=== PATIENT | female | born 1965 | race Caucasian/White ===

== ENCOUNTER 2018-08-14 09:53 | Observation (INO) | payer SELFPAY ==
[2018-08-14] MEDS ORDERED: PREDNISONE 20 MG TABLET PO ONE (10:47)
[2018-08-14] MEDS ORDERED: IPRATROPIUM/ALBUTEROL 0.5-2.5 MG/3 ML AMPUL NEB ONE ×2 (10:47→12:03)
--- NOTE | 2018-08-14 10:50 | ER Document Report ---
ED Medical Screen (RME) - General Chief Complaint: Breathing Difficulty Stated Complaint: DIFFICULTY BREATHING Time Seen by Provider: 08/14/18 10:48 Mode of Arrival: Ambulatory Information source: Patient TRAVEL OUTSIDE OF THE [place] IN LAST 30 DAYS: No - HPI Onset: Other - 1 week ago Onset/Duration: Gradual, Constant Quality of pain: No pain Severity: None Pain Level: Denies Associated Symptoms: Cough (productive), Shortness of breath Exacerbated by: Denies Relieved by: Denies Similar symptoms previously: No Recently seen / treated by doctor: No - Related Data Smoking: Non-smoker Frequency of alcohol use: None Drug Abuse: None Allergies/Adverse Reactions: naproxen Adverse Reaction (Verified 08/14/18 09:54) Sulfa (Sulfonamide Antibiotics) Adverse Reaction (Verified 08/14/18 09:54) Past Medical History - Social History Chew tobacco use (# tins/day): No Frequency of alcohol use: None Drug Abuse: None Renal/ Medical History: Denies: Hx Peritoneal Dialysis GI Medical History: Reports: Hx Irritable Bowel Past Surgical History: Reports: Hx Oral Surgery, Hx Tubal Ligation - Immunizations Hx Diphtheria, Pertussis, Tetanus Vaccination: Yes Review of Systems - Review of Systems Constitutional: No symptoms reported EENT: No symptoms reported Cardiovascular: No symptoms reported Respiratory: Cough, Short of breath Gastrointestinal: No symptoms reported Genitourinary: No symptoms reported Female Genitourinary: No symptoms reported Musculoskeletal: No symptoms reported Skin: No symptoms reported Hematologic/Lymphatic: No symptoms reported Neurological/Psychological: No symptoms reported -: Yes All other systems reviewed and negative Physical Exam - Vital signs Vitals: Temp Pulse Resp BP Pulse Ox 98.4 F 65 16 149/71 H 98 08/14/18 10:00 08/14/18 10:00 08/14/18 10:00 08/14/18 10:00 08/14/18 10:00 Interpretation: Normal - General General appearance: Appears well, Alert - HEENT Head: Normocephalic, Atraumatic Eyes: Normal Pupils: PERRL - Respiratory Respiratory status: No respiratory distress Chest status: Nontender Breath sounds: Wheezing - Expiratory wheeze. Chest palpation: Normal - Cardiovascular Rhythm: Regular Heart sounds: Normal auscultation Murmur: No - Abdominal Inspection: Normal Distension: No distension Bowel sounds: Normal Tenderness: Nontender Organomegaly: No organomegaly - Back Back: Normal, Nontender - Extremities General upper extremity: Normal inspection, Nontender, Normal color, Normal ROM, Normal temperature General lower extremity: Normal inspection, Nontender, Normal color, Normal ROM, Normal temperature, Normal weight bearing. No: Ezekiel's sign - Neurological Neuro grossly intact: Yes Cognition: Normal Orientation: AAOx4 Kite Coma Scale Eye Opening: Spontaneous Godfrey Coma Scale Verbal: Oriented Kite Coma Scale Motor: Obeys Commands Kite Coma Scale Total: 15 Speech: Normal Motor strength normal: LUE, RUE, LLE, RLE Sensory: Normal - Psychological Associated symptoms: Normal affect, Normal mood - Skin Skin Temperature: Warm Skin Moisture: Dry Skin Color: Normal Course - Vital Signs Vital signs: Temp Pulse Resp BP Pulse Ox 98.4 F 65 16 149/71 H 98 08/14/18 10:00 08/14/18 10:00 08/14/18 10:00 08/14/18 10:00 08/14/18 10:00 - Laboratory Result Diagrams: 08/14/18 11:15 08/14/18 11:15 Laboratory results interpreted by me: 08/14/18 08/14/18 08/14/18 11:15 11:15 12:26 WBC 16.0 H Hgb 15.9 H MCV 100 H MCH 34.4 H Absolute Neutrophils 9.8 H Absolute Lymphocytes 4.9 H ABG pO2 59.5 L ABG O2 Saturation 92.1 L Potassium 3.5 L Calcium 10.3 H - Diagnostic Test Radiology reviewed: Reports reviewed - Consults Dr Linus Guerrier Reason for consultation: 08/14/18 13:10 Admission for observation. Consulted provider: will come to ER Doctor's Discharge - Discharge Clinical Impression: Hypoxia URI (upper respiratory infection) Qualifiers: URI type: unspecified URI Qualified Code(s): J06.9 - Acute upper respiratory infection, unspecified Reactive airway disease Qualifiers: Asthma severity: unspecified severity Asthma persistence: unspecified Asthma complication type: uncomplicated Qualified Code(s): J45.909 - Unspecified asthma, uncomplicated Condition: Stable Disposition: ADMITTED OBSERVATION
[2018-08-14 11:36] LABS: ABSOLUTE LYMPHOCYTES (AUTO) 4.9 10^3/uL (0.5-4.7); ABSOLUTE MONOCYTES (AUTO) 1.3 10^3/uL (0.1-1.4); ABSOLUTE NEUT (AUTO) 9.8 10^3/uL (1.7-8.2); BASOPHILS % (AUTO) 0.2 % (0-2); EOSINOPHILS % (AUTO) 0.3 % (0-6); HEMATOCRIT 46.1 % (36.0-47.0); HEMOGLOBIN 15.9 g/dL (12.0-15.5); LYMPHOCYTES % (AUTO) 30.3 % (13-45); MEAN CORPUSCULAR HEMOGLOBIN 34.4 pg (27.0-33.4); MEAN CORPUSCULAR HGB CONC 34.4 g/dL (32.0-36.0); MEAN CORPUSCULAR VOLUME 100 fl (80-97); MONOCYTES % (AUTO) 8.1 % (3-13); PLATELET COUNT 364 10^3/uL (150-450); RED BLOOD COUNT 4.62 10^6/uL (3.72-5.28); SEGMENTED NEUTROPHILS % (AUTO) 61.1 % (42-78); TOTAL CELLS COUNTED % (AUTO) 100 %
[2018-08-14 11:57] LABS: ALANINE AMINOTRANSFERASE 24 U/L (9-52); ALKALINE PHOSPHATASE 103 U/L (38-126); ANION GAP 14 (5-19); ASPARTATE AMINO TRANSFERASE 16 U/L (14-36); BILIRUBIN,DIRECT 0.3 mg/dL (0.0-0.4); BILIRUBIN,TOTAL 0.8 mg/dL (0.2-1.3); BLOOD UREA NITROGEN 18 mg/dL (7-20); CALCIUM 10.3 mg/dL (8.4-10.2); CARBON DIOXIDE 26 mmol/L (22-30); CHLORIDE 99 mmol/L (98-107); GLUCOSE 94 mg/dL (75-110); POTASSIUM 3.5 mmol/L (3.6-5.0); SODIUM 139.1 mmol/L (137-145); TOTAL PROTEIN 7.9 g/dL (6.3-8.2)
[2018-08-14] MEDS ORDERED: LEVOFLOXACIN 750 MG TABLET PO ONE (12:02)
--- NOTE | 2018-08-14 12:10 | RADIOLOGY REPORT (SQ) ---
EXAM DESCRIPTION: CHEST 2 VIEWS COMPLETED DATE/TIME: 08/14/2018 11:23 am REASON FOR STUDY: cough COMPARISON: None. EXAM PARAMETERS: NUMBER OF VIEWS: two views TECHNIQUE: Digital Frontal and Lateral radiographic views of the chest acquired. RADIATION DOSE: NA LIMITATIONS: none FINDINGS: LUNGS AND PLEURA: No opacities, masses or pneumothorax. No pleural effusion. MEDIASTINUM AND HILAR STRUCTURES: No masses or contour abnormalities. HEART AND VASCULAR STRUCTURES: Heart normal size. No evidence for failure. BONES: No acute findings. HARDWARE: None in the chest. OTHER: No other significant finding. IMPRESSION: NO ACUTE RADIOGRAPHIC FINDING IN THE CHEST. TECHNICAL DOCUMENTATION: JOB ID: [id number] [employer]- All Rights Reserved Reading location - IP/workstation name: [email or web address]
[2018-08-14 12:44] LABS: ARTERIAL BLOOD BASE EXCESS 0.4 mmol/L; ARTERIAL BLOOD H2CO3 1.06 mmol/L (1.05-1.35); ARTERIAL BLOOD HCO3 23.8 mmol/L (20-24); ARTERIAL BLOOD O2 SATURATION 92.1 % (94-98); ARTERIAL BLOOD PCO2 35.1 mmHg (35-45); ARTERIAL BLOOD PH 7.45 (7.35-7.45); ARTERIAL BLOOD PO2 59.5 mmHg (80-100); ARTERIAL BLOOD TOTAL CO2 24.9 mmol/L (21-25)
[2018-08-14 12:45] LABS: ARTERIAL BLOOD FIO2 ROOM AIR
--- NOTE | 2018-08-14 14:50 | PDOC H&P ---
History of Present Illness Admission Date/PCP: 08/14/18 14:08 History of Present Illness: MELVINA BECK is a 53 year old female who smokes about a pack of cigarettes a day who is been trying to quit for the past year and states she has not had a cigarette in the past week and a half, around the time that she started to have some trouble breathing. She has not had any fever or productive cough. She said that she started out with some tightness when she breathes, and this progressed to some dyspnea with exertion, but she feels fine at rest. She is not had any swelling in her extremities. Her chest is not felt congested. She does not have any substantial past medical history except for some seasonal allergies. She denies any history of any kind of heart problems. She has had no chest pain. She went to an urgent care and was given a prescription for doxycycline and prednisone. She said she felt like she was not getting any better and so she went to a second urgent care because the first 1 was closed, and at the second urgent care they changed up her prednisone dosing but left the doxycycline alone. She said a day later she stopped taking the doxycycline because she thought it was making her breathing worse. She comes to the ER today and is comfortable at rest talking in complete sentences with a respiratory rate of around 14-16 and an SPO2 in the mid 90s. On her blood gas her PCO2 was 59.5 and the ER doctor wanted to bring her in for observation. Past Surgical History Past Surgical History: Reports: Tubal Ligation Social History Smoking Status: Current Every Day Smoker - Advance Directive Resuscitation Status: Full Code Family History Family History: Reviewed & Not Pertinent Parental Family History Reviewed: Yes - Hypertension Children Family History Reviewed: NA Sibling(s) Family History Reviewed.: Unknown Medication/Allergy Home Medications: No Home Medications 08/14/18 Allergies/Adverse Reactions: naproxen Adverse Reaction (Verified 08/14/18 09:54) Sulfa (Sulfonamide Antibiotics) Adverse Reaction (Verified 08/14/18 09:54) Review of Systems All systems: reviewed and no additional remarkable complaints except as stated - All systems reviewed and are negative except as noted in the HPI Physical Exam Vital Signs: Temp Pulse Resp BP Pulse Ox 98.4 F 65 16 149/71 H 98 08/14/18 10:00 08/14/18 10:00 08/14/18 10:00 08/14/18 10:00 08/14/18 10:00 Intake & Output 08/13/18 08/14/18 08/15/18 06:59 06:59 06:59 Weight 56.8 kg General appearance: PRESENT: no acute distress, cooperative Head exam: PRESENT: atraumatic, normocephalic Eye exam: PRESENT: EOMI, PERRLA. ABSENT: conjunctival injection, nystagmus, scleral icterus Ear exam: PRESENT: normal external ear exam Mouth exam: PRESENT: moist, neck supple Throat exam: ABSENT: post pharyngeal erythema Neck exam: PRESENT: full ROM. ABSENT: carotid bruit, JVD, lymphadenopathy, meningismus, tenderness, thyromegaly Respiratory exam: PRESENT: clear to auscultation anisha, symmetrical, unlabored. ABSENT: accessory muscle use, chest wall tenderness, crackles, prolonged expiratory phas, rhonchi, stridor, tachypnea, wheezes Cardiovascular exam: PRESENT: RRR, +S1, +S2. ABSENT: diastolic murmur, systolic murmur Pulses: PRESENT: normal carotid pulses Vascular exam: PRESENT: normal capillary refill GI/Abdominal exam: PRESENT: normal bowel sounds, soft. ABSENT: distended, guarding, rebound, tenderness Extremities exam: PRESENT: other - No leg edema. ABSENT: clubbing, pedal edema Musculoskeletal exam: PRESENT: ambulatory, normal inspection. ABSENT: deformity Neurological exam: PRESENT: alert, awake, oriented to person, oriented to place, oriented to time, oriented to situation, CN II-XII grossly intact, normal gait. ABSENT: motor sensory deficit Psychiatric exam: PRESENT: anxious Skin exam: PRESENT: dry, warm Results Laboratory Results: 08/14/18 11:15 08/14/18 11:15 08/14/18 08/14/18 08/14/18 11:15 11:15 12:26 WBC 16.0 H RBC 4.62 Hgb 15.9 H Hct 46.1 MCV 100 H MCH 34.4 H MCHC 34.4 RDW 13.0 Plt Count 364 Seg Neutrophils % 61.1 Lymphocytes % 30.3 Monocytes % 8.1 Eosinophils % 0.3 Basophils % 0.2 Absolute Neutrophils 9.8 H Absolute Lymphocytes 4.9 H Absolute Monocytes 1.3 Absolute Eosinophils 0.0 Absolute Basophils 0.0 Carbonic Acid 1.06 HCO3/H2CO3 Ratio 22:1 ABG pH 7.45 ABG pCO2 35.1 ABG pO2 59.5 L ABG HCO3 23.8 ABG O2 Saturation 92.1 L ABG Base Excess 0.4 FiO2 ROOM AIR Sodium 139.1 Potassium 3.5 L Chloride 99 Carbon Dioxide 26 Anion Gap 14 BUN 18 Creatinine 0.55 Est GFR ( Amer) > 60 Est GFR (Non-Af Amer) > 60 Glucose 94 Calcium 10.3 H Total Bilirubin 0.8 AST 16 ALT 24 Alkaline Phosphatase 103 Total Protein 7.9 Albumin 5.0 Impressions: Chest X-Ray 08/14/18 10:46 IMPRESSION: NO ACUTE RADIOGRAPHIC FINDING IN THE CHEST. Assessment & Plan - Diagnosis (1) URI (upper respiratory infection) Qualifiers: URI type: unspecified URI Qualified Code(s): J06.9 - Acute upper respiratory infection, unspecified Is this a current diagnosis for this admission?: Yes Plan: I am going to continue her prednisone and doxycycline. I am not concerned with the slightly low PaO2, because she is breathing comfortably at rest speaking in complete sentences, with an SPO2 in the mid 90s that goes up whenever she took deep breaths for the physical examination. I can find no evidence on her workup thus far or on her physical examination to explain why she would be dyspneic with exertion. She displays no symptoms or signs at this point of any cardiopulmonary decompensation. We will keep her overnight for observation, and if she is unchanged in the morning, she will go home at that time. - Time Time Spent: 50 to 70 Minutes
[2018-08-14] MEDS ORDERED: DOXYCYCLINE HYCLATE 100 MG TABLET PO SCH (22:00)
[2018-08-14] MEDS: ACETAMINOPHEN 325 MG TABLET PO PRN (23:18)
[2018-08-15] MEDS: ACETAMINOPHEN 325 MG TABLET PO PRN (08:17)
[2018-08-15] MEDS: METHYLPREDNISOLONE INJ 40 MG/1 ML SDV IV SCH ×2 (09:58→21:52)
[2018-08-15] MEDS ORDERED: PREDNISONE 20 MG TABLET PO SCH (10:00)
--- NOTE | 2018-08-15 13:06 | RADIOLOGY REPORT (SQ) ---
EXAM DESCRIPTION: NM LUNG VENTILATION SCAN COMPLETED DATE/TIME: 08/15/2018 12:56 pm REASON FOR STUDY: hypoxia, sob COMPARISON: None. RADIONUCLIDE AND DOSE: No millicuries TC-99m MAA Intravenous 32.6 millicuries TC-99m DTPA Inhaled aerosol TECHNIQUE: Views of the lungs acquired post ventilation of DTPA aerosol. The patient was unable dandy erate being under the camera. LIMITATIONS: None. FINDINGS: The study was not completed. The patient was not able tolerate appearing under the camera . IMPRESSION: The study was not completed. TECHNICAL DOCUMENTATION: JOB ID: [id number] [employer]- All Rights Reserved Reading location - IP/workstation name: [email or web address]
--- NOTE | 2018-08-15 13:49 | EKG REPORT ---
SEVERITY:- ABNORMAL ECG - SINUS RHYTHM RIGHT ATRIAL ABNORMALITY LEFT AXIS DEVIATION BORDERLINE T WAVE ABNORMALITIES : Confirmed by: Curtis Klein MD 15-Aug-2018 13:48:23
[2018-08-15] MEDS ORDERED: LORAZEPAM INJ 2 MG/1 ML VIAL IV ONE ×2 (14:01→14:15)
[2018-08-15] MEDS ORDERED: LORAZEPAM INJ 2 MG/1 ML VIAL IV PRN (14:27)
[2018-08-15 14:31] LABS: ABSOLUTE LYMPHOCYTES (AUTO) 1.5 10^3/uL (0.5-4.7); ABSOLUTE MONOCYTES (AUTO) 0.3 10^3/uL (0.1-1.4); ABSOLUTE NEUT (AUTO) 13.7 10^3/uL (1.7-8.2); BASOPHILS % (AUTO) 0.2 % (0-2); HEMATOCRIT 44.3 % (36.0-47.0); HEMOGLOBIN 15.5 g/dL (12.0-15.5); LYMPHOCYTES % (AUTO) 9.6 % (13-45); MEAN CORPUSCULAR HEMOGLOBIN 34.8 pg (27.0-33.4); MEAN CORPUSCULAR VOLUME 100 fl (80-97); MONOCYTES % (AUTO) 1.9 % (3-13); PLATELET COUNT 363 10^3/uL (150-450); RED BLOOD COUNT 4.45 10^6/uL (3.72-5.28); RED CELL DISTRIBUTION WIDTH 12.9 % (11.5-14.0); SEGMENTED NEUTROPHILS % (AUTO) 88.3 % (42-78); TOTAL CELLS COUNTED % (AUTO) 100 %; WHITE BLOOD COUNT 15.5 10^3/uL (4.0-10.5)
[2018-08-15] MEDS: AZITHROMYCIN 250 MG TABLET PO SCH (14:39)
[2018-08-15] MEDS: IPRATROPIUM/ALBUTEROL 0.5-2.5 MG/3 ML AMPUL NEB SCH ×2 (14:43→19:29)
[2018-08-15 14:54] LABS: ANION GAP 11 (5-19); BLOOD UREA NITROGEN 20 mg/dL (7-20); CALCIUM 9.4 mg/dL (8.4-10.2); CARBON DIOXIDE 24 mmol/L (22-30); CHLORIDE 104 mmol/L (98-107); GLUCOSE 174 mg/dL (75-110); POTASSIUM 4.1 mmol/L (3.6-5.0); SODIUM 138.8 mmol/L (137-145)
--- NOTE | 2018-08-15 14:58 | PDOC PROGRESS REPORT ---
Subjective Progress Note for:: 08/15/18 Subjective:: This is a 53 yr old female with a PMH of possible obstructive airway disease, chronic smoking, NOT previously diagnosed with COPD or asthma who presented with increasing SOB. She reported she had a bout of bronchitis a week ago and was prescribe dprednisone and doxycycline with no significant relief. In the ER, he was noted to have a PO2 of 59 on ABG and sats of 92% on room air. He reportedly had wheezing per ED provider's note. This morning, upon encounter, patient just got to her bed from the bathroom and was noted to be dyspneic but saturating well on 2 lpm via NC. She does say she has anxiety but this is her worst episode of shortness of breath yet. She does have slightly decreased breath sounds on the auscultation with very minimal wheezes. A VQ scan was ordered and she was not able to tolerate procedure as she says she is orthopneic and that she is not able to tolerate lying flat and that she is also claustrophobic. Reason For Visit: URI Physical Exam Vital Signs: Temp Pulse Resp BP Pulse Ox 97.3 F 85 16 140/70 H 97 08/15/18 00:00 08/15/18 00:00 08/15/18 00:00 08/15/18 00:00 08/15/18 00:00 Intake & Output 08/14/18 08/15/18 08/16/18 06:59 06:59 06:59 Intake Total 240 Balance 240 Weight 126 lb 15.78 oz General appearance: PRESENT: mild distress, well-developed, well-nourished Head exam: PRESENT: atraumatic, normocephalic Eye exam: PRESENT: conjunctiva pink, EOMI, PERRLA. ABSENT: scleral icterus Ear exam: PRESENT: normal external ear exam Mouth exam: PRESENT: moist, tongue midline Neck exam: ABSENT: carotid bruit, JVD, lymphadenopathy, thyromegaly Respiratory exam: PRESENT: decreased breath sounds. ABSENT: rales, rhonchi Cardiovascular exam: PRESENT: RRR. ABSENT: diastolic murmur, rubs, systolic murmur Pulses: PRESENT: normal dorsalis pedis pul GI/Abdominal exam: PRESENT: normal bowel sounds, soft. ABSENT: distended, guarding, mass, organolmegaly, rebound, tenderness Rectal exam: PRESENT: deferred Neurological exam: PRESENT: alert, awake, oriented to person, oriented to place, oriented to time, oriented to situation, CN II-XII grossly intact. ABSENT: motor sensory deficit Results Laboratory Results: 08/15/18 14:22 08/15/18 14:22 WBC 15.5 H RBC 4.45 Hgb 15.5 Hct 44.3 MCV 100 H MCH 34.8 H MCHC 35.0 RDW 12.9 Plt Count 363 Seg Neutrophils % 88.3 H Lymphocytes % 9.6 L Monocytes % 1.9 L Eosinophils % 0.0 Basophils % 0.2 Absolute Neutrophils 13.7 H Absolute Lymphocytes 1.5 Absolute Monocytes 0.3 Absolute Eosinophils 0.0 Absolute Basophils 0.0 Impressions: Chest X-Ray 08/14/18 10:46 IMPRESSION: NO ACUTE RADIOGRAPHIC FINDING IN THE CHEST. Lung Scan-VQ NM 08/15/18 08:57 IMPRESSION: The study was not completed. Assessment & Plan - Diagnosis (1) Acute respiratory failure with hypoxia Is this a current diagnosis for this admission?: Yes Plan: No previous formal diagnosis of asthma or COPD. Considering possible COPD with her history of chronic smoking. Will rule out PE though as she did have low PO2 on ABG and is complaining of significant dyspnea. Currently saturating well on 2 lpm via NC. (2) Reactive airway disease Qualifiers: Asthma severity: unspecified severity Asthma persistence: unspecified Asthma complication type: uncomplicated Qualified Code(s): J45.909 - Unspecified asthma, uncomplicated Is this a current diagnosis for this admission?: Yes Plan: Will order a bedside PFT for tomorrow. Will optimize treatment for possible COPD. Switch prednisone to solumedrol. Will add scheduled breathing treatments and azithromycin. (3) Anxiety Is this a current diagnosis for this admission?: Yes (4) Cigarette smoker Is this a current diagnosis for this admission?: Yes Plan: Counseled on smoking cessation. Will add nicotine patch as well. - Time Time Spent with patient: 35 or more minutes
[2018-08-15 15:06] LABS: NT PRO BNP 74 pg/mL (5-900)
[2018-08-15 15:07] LABS: TROPONIN I < 0.012 ng/mL
[2018-08-15] MEDS: NORMAL SALINE 1000 ML 1,000 ML IV PRN (15:48)
[2018-08-15] MEDS: NICOTINE 21 MG/24 HR PATCH.TD24 TD SCH (16:01)
--- NOTE | 2018-08-15 16:07 | RADIOLOGY REPORT (SQ) ---
EXAM DESCRIPTION: CTA CHEST COMPLETED DATE/TIME: 08/15/2018 3:37 pm REASON FOR STUDY: sob, hypoxia failed V/Q scan COMPARISON: None. TECHNIQUE: CT scan of the chest performed using helical scanning technique with dynamic intravenous contrast injection. Images reviewed with lung, soft tissue and bone windows. Reconstructed coronal and sagittal MPR images reviewed. Additional 3 dimensional post-processing performed to develop Maximal Intensity Projection images (OR P). All images stored on PACS. All CT scanners at this facility use dose modulation, iterative reconstruction, and/or weight based d osing when appropriate to reduce radiation dose to as low as reasonably achievable (ALARA). [facility]: Dose Right [facility]: CareDose [facility]: Dose Right [facility]: Teradose 4D [facility]: [employer] CONTRAST TYPE AND DOSE: contrast/concentration: Isovue 350.00 mg/ml; Total Contrast Delivered: 61.0 ml; Total Saline Delivered: 106.0 ml Contrast bolus optimized for the pulmonary arteries. Not diagnostic for the aorta. RENAL FUNCTION: BUN 18 creatinine 0.55 RADIATION DOSE: CT Rad equipment meets quality standard of care and radiation dose reduction techniq ues were employed. CTDIvol: 6.1 - 9.4 mGy. DLP: 233 mGy-cm. . LIMITATIONS: None. FINDINGS: LUNGS AND PLEURA: No masses, infiltrates, or pneumothorax. No pleural effusions or pleura l calcifications. AORTA AND GREAT VESSELS: No aneurysm. Contrast bolus not optimized for the aorta. HEART: No pericardial effusion. No significant coronary artery calcifications. PULMONARY ARTERIES: No emboli visualized in the main pulmonary arteries or the segmental branches. HILAR AND MEDIASTINAL STRUCTURES: No identified masses or abnormal nodes. HARDWARE: None in the chest. UPPER ABDOMEN: No significant findings. Limited exam. THYROID AND OTHER SOFT TISSUES: No masses. No adenopathy. BONES: No acute or significant finding. 3D MIPS: Confirm above findings. OTHER: No other significant finding. IMPRESSION: NORMAL CTA OF THE CHEST. NO PULMONARY EMBOLI. COMMENT: Quality ID # [id number]: Final reports with documentation of one or more dose reduction techniques (e.g., Automated exposure control, adjustment of the mA and/or kV according to patient size, use of iterative reconstruction technique) TECHNICAL DOCUMENTATION: JOB ID: [id number] [employer]- All Rights Reserved Reading location - IP/workstation name: [email or web address]
[2018-08-16] MEDS: IPRATROPIUM/ALBUTEROL 0.5-2.5 MG/3 ML AMPUL NEB SCH ×3 (02:24→13:59)
[2018-08-16 08:41] LABS: ANION GAP 12 (5-19); BLOOD UREA NITROGEN 14 mg/dL (7-20); CALCIUM 9.1 mg/dL (8.4-10.2); CARBON DIOXIDE 23 mmol/L (22-30); CHLORIDE 104 mmol/L (98-107); GLUCOSE 105 mg/dL (75-110); POTASSIUM 4.3 mmol/L (3.6-5.0)
[2018-08-16] MEDS: NICOTINE 21 MG/24 HR PATCH.TD24 TD SCH (10:00)
[2018-08-16] MEDS: METHYLPREDNISOLONE INJ 40 MG/1 ML SDV IV SCH (10:00)
[2018-08-16] MEDS: AZITHROMYCIN 250 MG TABLET PO SCH (10:00)
[2018-08-16] MEDS: NORMAL SALINE 1000 ML 1,000 ML IV PRN (12:32)
[2018-08-16] MEDS: ACETAMINOPHEN 325 MG TABLET PO PRN (12:41)
--- NOTE | 2018-08-16 17:09 | PDOC DISCHARGE SUMMARY ---
General - Admit/Disc Date/PCP Admission Date/Primary Care Provider: 08/14/18 14:08 Discharge Date: 08/16/18 - Discharge Diagnosis (1) Acute respiratory failure with hypoxia Is this a current diagnosis for this admission?: Yes (2) Reactive airway disease Is this a current diagnosis for this admission?: Yes (3) Anxiety Is this a current diagnosis for this admission?: Yes (4) Cigarette smoker Is this a current diagnosis for this admission?: Yes - Additional Information Resuscitation Status: Full Code Discharge Diet: Regular Prescriptions: Albuterol Sulfate [Proair HFA Inhalation Aerosol 8.5 gm MDI] 1 puff IH Q4 PRN #1 mdi PRN Reason: Alprazolam [Xanax 0.5 mg Tablet] 0.5 mg PO Q6HP PRN #12 tab PRN Reason: Anxiety Azithromycin 500 mg PO DAILY 1 Days #1 tablet Fluticasone/Salmeterol [Advair 250-50 Diskus 14 Dose/Diskus] 1 inh IH Q12H #1 inhaler Ipratropium/Albuterol Sulfate [Duoneb 3 ml Ampul] 3 ml NEB RTQ6HP PRN #30 vial.neb PRN Reason: For Wheezing or SOB Prednisone [Deltasone 20 mg Tablet] 20 mg PO BID 5 Days #10 tablet Sertraline HCl [Zoloft 50 mg Tablet] 50 mg PO DAILY #30 tablet Home Medications: Cetirizine HCl [Zyrtec] 10 mg PO QAM 08/14/18 Guaifenesin [Mucinex] 600 mg PO DAILY 08/14/18 Albuterol Sulfate [Proair HFA Inhalation Aerosol 8.5 gm MDI] 1 puff IH Q4 PRN #1 mdi 08/16/18 Alprazolam [Xanax 0.5 mg Tablet] 0.5 mg PO Q6HP PRN #12 tab 08/16/18 Azithromycin 500 mg PO DAILY 1 Days #1 tablet 08/16/18 Fluticasone/Salmeterol [Advair 250-50 Diskus 14 Dose/Diskus] 1 inh IH Q12H #1 inhaler 08/16/18 Ipratropium/Albuterol Sulfate [Duoneb 3 ml Ampul] 3 ml NEB RTQ6HP PRN #30 vial.neb 08/16/18 Prednisone [Deltasone 20 mg Tablet] 20 mg PO BID 5 Days #10 tablet 08/16/18 Sertraline HCl [Zoloft 50 mg Tablet] 50 mg PO DAILY #30 tablet 08/16/18 History of Present Illness History of Present Illness: Admitting hospitalist's H&P: MELVINA BECK is a 53 year old female who smokes about a pack of cigarettes a day who is been trying to quit for the past year and states she has not had a cigarette in the past week and a half, around the time that she started to have some trouble breathing. She has not had any fever or productive cough. She said that she started out with some tightness when she breathes, and this progressed to some dyspnea with exertion, but she feels fine at rest. She is not had any swelling in her extremities. Her chest is not felt congested. She does not have any substantial past medical history except for some seasonal allergies. She denies any history of any kind of heart problems. She has had no chest pain. She went to an urgent care and was given a prescription for doxycycline and prednisone. She said she felt like she was not getting any better and so she went to a second urgent care because the first 1 was closed, and at the second urgent care they changed up her prednisone dosing but left the doxycycline alone. She said a day later she stopped taking the doxycycline because she thought it was making her breathing worse. She comes to the ER today and is comfortable at rest talking in complete sentences with a respiratory rate of around 14-16 and an SPO2 in the mid 90s. On her blood gas her PCO2 was 59.5 and the ER doctor wanted to bring her in for observation. Hospital Course Hospital Course: This is a 53 yr old female with a PMH of possible obstructive airway disease, chronic smoking, NOT previously diagnosed with COPD or asthma who presented with increasing SOB. She reported she had a bout of bronchitis a week ago and was prescribe dprednisone and doxycycline with no significant relief. In the ER, he was noted to have a PO2 of 59 on ABG and sats of 92% on room air. He reportedly had wheezing per ED provider's note. 08/15: This morning, upon encounter, patient just got to her bed from the bathroom and was noted to be dyspneic but saturating well on 2 lpm via NC. She does say she has anxiety but this is her worst episode of shortness of breath yet. She also complained of associated chest tightness. She does have slightly decreased breath sounds on auscultation with very minimal wheezes. A VQ scan was ordered and she was not able to tolerate procedure as she says she is orth opneic and that she is not able to tolerate lying flat and that she is also claustrophobic. Chest CTA was normal. EKG, troponins and BNP were normal. Renal function remained normal after CTA study. She was continued on steroids, azithromycin and scheduled breathing treatments. She did have improvement and on day of discharge had clear breath sounds with very minimal wheezes. A bedside spirometry was done and results are suggestive of significant obstructive disease with an FEV1/FVC ratio of 40. Patient has remained very anxious throughout this hospital course and very tearful. On further questioning, she admits with her on bedside that she has been extremely stressed as her mother is critically sick and is admitted at [facility] and that she has been having a lot of stressors at home. She denies suicidal ideation. She is amenable to a short term trial of sertraline as she thinks she is not able to control her anxiety and panic attacks. She was given an appt with pulmonology for formal PFT. She will be started on COPD regimen including a short course of prednisone, Advair and prn breahting treatments. Physical Exam Vital Signs: Temp Pulse Resp BP Pulse Ox 98.3 F 86 18 123/78 95 08/16/18 15:00 08/16/18 15:00 08/16/18 15:00 08/16/18 15:00 08/16/18 15:00 Intake & Output 08/15/18 08/16/18 08/17/18 06:59 06:59 06:59 Intake Total 240 8 1000 Balance 240 8 1000 Weight 126 lb 15.78 oz 126 lb 15.78 oz General appearance: PRESENT: no acute distress, well-developed, well-nourished Head exam: PRESENT: atraumatic, normocephalic Eye exam: PRESENT: conjunctiva pink, EOMI, PERRLA. ABSENT: scleral icterus Ear exam: PRESENT: normal external ear exam Mouth exam: PRESENT: moist, tongue midline Neck exam: ABSENT: carotid bruit, JVD, lymphadenopathy, thyromegaly Respiratory exam: PRESENT: clear to auscultation anisha. ABSENT: rales, rhonchi, wheezes Cardiovascular exam: PRESENT: RRR. ABSENT: diastolic murmur, rubs, systolic murmur Pulses: PRESENT: normal dorsalis pedis pul GI/Abdominal exam: PRESENT: normal bowel sounds, soft. ABSENT: distended, guarding, mass, organolmegaly, rebound, tenderness Rectal exam: PRESENT: deferred Extremities exam: PRESENT: full ROM. ABSENT: calf tenderness, clubbing, pedal edema Neurological exam: PRESENT: alert, awake, oriented to person, oriented to place, oriented to time, oriented to situation, CN II-XII grossly intact. ABSENT: motor sensory deficit Psychiatric exam: PRESENT: anxious Results Laboratory Results: 08/15/18 14:22 08/16/18 06:55 08/16/18 06:55 Sodium 139.0 Potassium 4.3 Chloride 104 Carbon Dioxide 23 Anion Gap 12 BUN 14 Creatinine 0.45 L Est GFR ( Amer) > 60 Est GFR (Non-Af Amer) > 60 Glucose 105 Calcium 9.1 08/14/18 11:44 Throat Throat Culture - Final NORMAL ANGELY 08/15/18 14:22 Troponin I < 0.012 NT-Pro-B Natriuret Pep 74 Impressions: Chest X-Ray 08/14/18 10:46 IMPRESSION: NO ACUTE RADIOGRAPHIC FINDING IN THE CHEST. Lung Scan-VQ NM 08/15/18 08:57 IMPRESSION: The study was not completed. Chest/Abdomen CTA 08/15/18 13:56 IMPRESSION: NORMAL CTA OF THE CHEST. NO PULMONARY EMBOLI. Qualifiers - * PATIENT BEING DISCHARGED WITH ANY OF THE FOLLOWING DIAGNOSIS: No
[2018-08-16 17:40] VITALS: BP 115/69
== END 2018-08-16 18:00 | disposition home or self-care (01) ==
LOC: ER 09:53 → EH 14:08 → 4N 15:30
PROVIDERS: ADMIT Family Medicine; ATTEND Family Medicine
DX: J96.01 Acute respiratory failure with hypoxia (principal); J45.909 Unspecified asthma, uncomplicated; F41.9 Anxiety disorder, unspecified; F17.210 Nicotine dependence, cigarettes, uncomplicated; F40.240 Claustrophobia; Z79.899 Other long term (current) drug therapy; Z63.79 Other stressful life events affecting family and household; Z82.49 Family history of ischemic heart disease and other diseases of the circulatory system
CPT/HCPCS: 94640 ×5; 99285; 36415 ×3; 87040; 87070; 87880; 82803; 85025 ×2; 80048 ×2; 80053; 84484; 83880; 71046; 78579; 71275; 93005; 93010; 94010; G0378 ×4; A9567; J2920 ×2; J2060; J7512; J3490 ×2; J7030 ×2; J7620 ×3

== ENCOUNTER → 2020-02-19 | Outpatient (CLI) | payer OTHER ==
--- NOTE | 2020-02-19 14:13 | RADIOLOGY REPORT (SQ) ---
EXAM DESCRIPTION: CT SOFT TISSUE NECK WITH IMAGES COMPLETED DATE/TIME: 02/19/2020 9:23 am REASON FOR STUDY: R22.1 LOCALIZED SWELLING, MASS AND LUMP, NECK R22.1 LOCALIZED SWELLING, MASS AND LUMP, NECK COMPARISON: None. TECHNIQUE: Post IV contrasted scanning from skull base through lung apices with review of bone, soft tissue and lung windows. Reconstructed coronal and sagittal MPR images reviewed. All images stored on PACS. All CT scanners at this facility use dose modulation, iterative reconstruction, and/or weight based d osing when appropriate to reduce radiation dose to as low as reasonably achievable (ALARA). [facility]: Dose Right [facility]: CareDose [facility]: Dose Right [facility]: Teradose 4D [facility]: Jukedeck CONTRAST TYPE AND DOSE: contrast/concentration: Isovue 350.00 mmol/ml; Total Contrast Delivered: 75. 0 ml; Total Saline Delivered: 55.0 ml RENAL FUNCTION: GFR > 60. RADIATION DOSE: . LIMITATIONS: None. FINDINGS: SKULL BASE: Intact. MAJOR SALIVARY GLANDS: No solid or cystic masses. No inflammatory changes. LYMPHADENOPATHY: No adenopathy. MUCOSAL MASSES OR ASYMMETRY: No mucosal masses or asymmetry. LARYNX/CORDS: No abnormal findings. VASCULAR STRUCTURES: The major vessels are patent. LUNG APICES: Clear. BONES: Intact. THYROID: Normal size. No masses. PARANASAL SINUSES: Clear. OTHER: No other significant finding. IMPRESSION: NO SIGNIFICANT FINDING IN THE SOFT TISSUES OF THE NECK. TECHNICAL DOCUMENTATION: JOB ID: [id number] Quality ID # [id number]: Final reports with documentation of one or more dose reduction techniques (e.g., Au tomated exposure control, adjustment of the mA and/or kV according to patient size, use of iterative reconstruction technique) 2010 [employer]- All Rights Reserved Reading location - IP/workstation name: [email or web address]
== END ==
LOC: RAD 09:32
PROVIDERS: ATTEND Otolaryngology
DX: R22.1 Localized swelling, mass and lump, neck (principal)
CPT/HCPCS: 70491

== ENCOUNTER 2020-04-27 10:13 | Day surgery (SDC) | payer OTHER ==
[2020-04-27] MEDS ORDERED: LIDOCAINE 2%/EPINEPHRINE INJ 1.7 ML CARTRIDGE ONE ×2 (12:07→12:30)
[2020-04-27] MEDS ORDERED: COCAINE HCL 4% TOPICAL SOLN 4 ML ONE (12:07)
[2020-04-27] MEDS ORDERED: OXYMETAZOLINE HCL 0.05% NASAL SPRAY 15 ML BOTTLE ONE (12:07)
[2020-04-27] MEDS ORDERED: ONDANSETRON HCL INJ/PF 4 MG/2 ML SDV ONE (12:11)
[2020-04-27] MEDS ORDERED: FENTANYL CITRATE INJ/PF 100 MCG/2 ML AMPUL ONE (12:11)
[2020-04-27] MEDS ORDERED: MIDAZOLAM 2 MG/2 ML INJ ONE (12:11)
[2020-04-27] MEDS ORDERED: SUCCINYLCHOLINE CHLORIDE INJ 200 MG/10 ML VIAL ONE (12:12)
[2020-04-27] MEDS ORDERED: LIDOCAINE 2% INJ-PF (100 MG/5 ML) SYRINGE ONE (12:12)
[2020-04-27] MEDS ORDERED: PROPOFOL INJ 200 MG/20 ML VIAL IV ONE (12:12)
--- NOTE | 2020-04-27 13:24 | Operative Report ---
Operative Report-[facility] Operative Report: Date: 27 April 2020 History: 34-year-old female with a history of bilateral eustachian tube dysf unction, failed medical management. Presents today for a BMT T and balloon dilation of both eustachian tubes. Informed consent was obtained from the patient. Preoperative Diagnosis: 1. Eustachian tube dysfunction, bilateral Postoperative diagnosis: Same as above Procedure: 1. Eustachian tube balloon dilation/reconstruction nasopharynx [CPT = 14728], right 2. Eustachian tube balloon dilation/reconstruction nasopharynx [CPT = 25324], left 3. Myringotomy with insertion tympanostomy tube, bilateral 4. Rigid nasal endoscopy, bilateral Surgeon: Rahul Pang MD, FACS, FCCP Anesthesia: GETA Description of procedure: After receiving informed consent from the patient, the patient was transported to the operating room and placed supine on the operating room table. After successful induction and intubation by anesthesia cottonoids saturated with 4% cocaine were placed into both nasal cavities for approximately 5 minutes. They were then removed. Nasal septum and inferior turbinate were injected with 2% Xylocaine with 100,000 epinephrine. The cottonoids were placed back into the nasal cavity. The operating microscope was brought into the field and under binocular microscopy a properly sized ear speculum was placed into the right ear. The tympanic membrane was visualized and a radial incision was made in the anterior inferior quadrant. Middle ear space was dry. A Marianne PE tube was then placed into this incision and otic drops placed into the external auditory canal. A similar procedure was performed on the left side. Attention was then directed to the eustachian tube balloon dilation portion of the procedure. The cottonoids were removed from the nasal cavity. A rigid 30 degree nasal endoscope along with the AREA eustachian tube balloon dilation system was inserted in the left nasal cavity. The torus tubarius was visualized. Under endoscopic guidance the balloon was inserted into the left eustachian tube lumen. The balloon was then insufflated to 12 atmospheric pressure for 2 minutes. The balloon was then let down and removed from the eustachian tube lumen. The endoscope and balloon system was then removed from the nasal cavity. A similar procedure was performed on the right side. The patient tolerated the procedure well without any complications. Patient was then given back to anesthesia who successfully extubated the patient without any complications. Estimated blood loss: Minimal Fluids: 500 mL The patient was transferred to the postanesthesia care unit in stable condition with spontaneous respirations.
== END 2020-04-27 14:29 | disposition home or self-care (01) ==
LOC: SC 10:13
PROVIDERS: ATTEND Otolaryngology
DX: H69.83 Other specified disorders of Eustachian tube, bilateral (principal); H65.23 Chronic serous otitis media, bilateral; R22.1 Localized swelling, mass and lump, neck; H93.13 Tinnitus, bilateral; H90.3 Sensorineural hearing loss, bilateral; G90.01 Carotid sinus syncope; F17.210 Nicotine dependence, cigarettes, uncomplicated; J44.9 Chronic obstructive pulmonary disease, unspecified; Z01.812 Encounter for preprocedural laboratory examination; Z20.828 Contact with and (suspected) exposure to other viral communicable diseases
CPT/HCPCS: 87635; 00170; 42950; 69436; J2250; J3490 ×2; C9046; J3010; J2001; J0330; J2405; J2704; C9803; 170